=== PATIENT | male | born 1980 | race Caucasian/White ===

== ENCOUNTER 2022-04-24 12:15 | Emergency (ER) | payer OTHER | END 2022-04-24 14:45 | disposition home or self-care (01) | LOC: MW.ED 12:15 | DX: M51.36 Other intervertebral disc degeneration, lumbar region (principal); R20.0 Anesthesia of skin; Z79.899 Other long term (current) drug therapy; Z88.8 Allergy status to other drugs, medicaments and biological substances | CPT/HCPCS: 72131; 72131-26; 99284-25 ==